=== PATIENT | male | born 1955 | race African-American/Black ===

== ENCOUNTER → 2020-12-03 | Day surgery (SDC) | payer BC, MEDICARE ==
[~2020-12-03] VITALS: Ht 172.7 cm; Wt 117.5 kg
[~2020-12-03] MED LIST: ALBU2.5V8 IH; ATOR40TA59 PO; CHLO25TA10 PO; FELO10TA4 PO; GLIM2TAB7 PO; HYDROmorphone 2 MG/ML VIAL IVP PRN; IV RINGERS,LACTATED 1000ML 1,000 ML IV SCH; LIDOCAINE 2% PF 5 ML VIAL. ONE; METF-658 PO; MORPHINE SULFATE 2 MG/ML INJ. IVP PRN; OMEP20CA16 PO; POTA20TA4 PO; PROCHLORPERAZINE 10 MG/2 ML VIAL. IVP PRN; PROPOFOL 10 MG/ML (20ML) VIAL. IV ONE; fentaNYL PF VIAL 100 MCG/2 ML VIAL IVP PRN
[2020-12-03 12:52] VITALS: BP 142/77
--- NOTE | 2020-12-03 14:02 | PDOC4 ---
PROCEDURE Procedure Colonoscopy with biopsies Indication: h/o polyps, last 2016 Meds: per anesthesia Findings: KATIE: normal --'Scope advanced to cecum. Prep adequate. Mucosa normal. 4mm polyp, distal transverse, biopsied off. IH's on retroflex. Exam otherwise normal. Jas. well. IMP: polyp hemorrhoids. REC: Await path. Resume diet and meds. F/u with me in 2 weeks. Repeat exam in 5 years. JOSE CRUZ ROCHA MD Dec 03, 2020 14:01
[2020-12-03 14:19] VITALS: BP 123/77
--- NOTE | 2020-12-05 13:16 | PATHOLOGY ---
[facility] Accession Number: [id number] . 01 Material submitted: . colon - BIOPSY OF DISTAL TRANSVERSE POLYP. Modifiers: distal, transverse . 01 Clinical history: . HISTORY OF POLYPS . 02 Diagnosis: Colon biopsies, distal transverse colon polyp: - Tubular adenoma. LBQ 12/05/2020 0946 Local . 02 Comment: There is no high grade dysplasia or evidence of malignancy. (JPM/db; 12/05/2020) . 02 Electronically signed: . Oniel Rao MD, Pathologist NPI- [id number] . 01 Gross description: . The specimen is received in formalin, labeled "Bryan Gautam, BX of distal transverse polyp". Received are 3 segments of pale mccoy tissue ranging in size from 0.2 cm to 0.4 cm in maximum dimensions. The specimen is submitted entirely in cassette A1.([facility]; 12/04/2020) [facility] 12/04/2020 1824 Local . 02 Pathologist provided ICD-10: D12.3 . 02 CPT . 858879 Specimen Comment: A courtesy copy of this report has been sent to [phone] Specimen Comment: [id number] Specimen Comment: Report sent to / DR CARPIO Specimen Comment: A duplicate report has been generated due to demographic updates. Performed at: [facility] [address] [facility] [address], [place] [id number] MD Stan Roy MD Phone: [phone] [facility]formed at: [facility] [address] [place], [place] [id number] MD Oniel Rao MD Phone: [phone]
== END | disposition home or self-care (01) ==
LOC: SURG 12:00
PROVIDERS: ATTEND Internal Medicine Gastroenterology
DX: Z12.11 Encounter for screening for malignant neoplasm of colon (principal); K64.0 First degree hemorrhoids; D12.3 Benign neoplasm of transverse colon; K63.89 Other specified diseases of intestine; I10 Essential (primary) hypertension; J45.909 Unspecified asthma, uncomplicated; E11.9 Type 2 diabetes mellitus without complications; E78.00 Pure hypercholesterolemia, unspecified; G47.30 Sleep apnea, unspecified; K21.9 Gastro-esophageal reflux disease without esophagitis; E66.3 Overweight; M19.90 Unspecified osteoarthritis, unspecified site; Z79.899 Other long term (current) drug therapy; Z98.890 Other specified postprocedural states; Z86.010 Personal history of colon polyps
CPT/HCPCS: 45380; J2704